=== PATIENT | male | born 1990 | race Two or more races ===

== ENCOUNTER 2016-11-22 00:34 | Emergency (ER) | payer OTHER ==
[2016-11-22] MEDS ORDERED: SULFAMETHOX/TMP 800/160 MG 1 TAB PO ONE (01:19)
--- NOTE | 2016-11-22 01:26 | EDPHY ---
H & P Stated Complaint: right thigh abcess Time Seen by Provider: 11/22/16 00:53 HPI/ROS: Chief complaint: Right thigh abscess History of present illness: This is a 26-year-old male who presents to the emergency department concerned he has developed a right thigh abscess. Patient reports he has had a history of recurrent abscesses in this region. He reports the onset of symptoms over the last few days. Reports pain and swelling to the inner aspect of the thigh. He believes needs to be drained. He denies other associated signs or symptoms including no no fevers, no difficulty ambulating. He is concerned he is having recurrent infections, he is wondering if he has maybe developed diabetes as he read about this online. - Personal History Tetanus Vaccine Date: < 10 years - Medical/Surgical History Hx Asthma: Yes Hx Chronic Respiratory Disease: No Hx Diabetes: No Hx Cardiac Disease: No Hx Renal Disease: No Hx Cirrhosis: No Hx Alcoholism: No Hx HIV/AIDS: No Hx Splenectomy or Spleen Trauma: No Other PMH: asthma. abcess recurring to lle - Social History Smoking Status: Current some day smoker - Physical Exam Exam: General Appearance: Alert, nontoxic. Eyes: Pupils equal and round no injection. Respiratory: Chest is nontender, lungs are clear to auscultation. Cardiac: Regular rhythm. Gastrointestinal: Abdomen is soft and nontender, no masses, bowel sounds normal. Musculoskeletal: Patient is ambulating without difficulty. Skin: There is a 3 cm area of fluctuance to the inner aspect of the right mid thigh. Mild surrounding erythema. No red streaking. Constitutional: Initial Vital Signs Temperature (C) 36.3 C 11/22/16 00:37 Heart Rate 123 H 11/22/16 00:37 Respiratory Rate 20 11/22/16 00:37 Blood Pressure 151/85 H 11/22/16 00:37 O2 Sat (%) 96 11/22/16 00:37 O2 Delivery Mode Room Air Allergies/Adverse Reactions: No Known Allergies Allergy (Verified 11/22/16 00:37) Home Medications: Medication Instructions Recorded Juani Allergy 01/24/15 Singulair 01/24/15 Montelukast Sodium [Singulair] 10 mg PO DAILY #30 tab 02/22/15 Albuterol Hfa Anes Only [Proair 2 puffs IH QID PRN #2 mdi 10/12/15 Hfa Icu (*)] Montelukast Sodium [Singulair] 10 mg PO DAILY@1800 #30 tab 10/12/15 Sulfamethox/Tmp 800/160 mg 1 tab PO BID #14 tab 11/22/16 [Bactrim Ds] Medical Decision Making Procedures: Procedure: Abscess drainage. The patient's abscess was located on the right thigh. I obtained verbal consent from the patient to drain the abscess who was informed about the possibility of bleeding and pain. The abscess was incised with a scalpel and a a moderate amount of purulent drainage was expressed. I irrigated the wound. The patient tolerated the procedure well. The procedure was performed by myself. ED Course/Re-evaluation: Patient seen under the supervision of my secondary supervising physician Dr. Patrick Castillo. Patient presents to the emergency department concerned he has developed another abscess on his thigh. He does appear to have an abscess and it has been incised and drained. There is some minimal surrounding erythema concerning for developing cellulitis. He is started on Bactrim. He is concerned about diabetes, blood sugars checked and within normal limits. A wound culture has been obtained. He will be discharged home on a full course of Bactrim. He is referred to a primary care doctor for further evaluation and care and follow-up on his wound culture. Home care is discussed. Return precautions are given. Patient voiced understanding and agreement with plan. Differential Diagnosis: Included but not limited to abscess, cellulitis, lymphangitis - Data Points Microbiology Results: MICROBIOLOGY 11/22/16 01:24 Leg - Swab Gram Stain - Final 11/22/16 01:24 Leg - Swab Wound Culture - Preliminary Medications Given: Discontinued Medications Sodium Chloride (Ns) 1,000 mls @ 0 mls/hr IV ONCE ONE PRN Reason: Wide Open Stop: 11/22/16 02:16 Last Admin: 11/22/16 02:15 Dose: 1,000 mls Trimethoprim/Sulfamethoxazole (Bactrim Ds) 1 ea PO EDNOW ONE PRN Reason: Protocol Stop: 11/22/16 01:20 Last Admin: 11/22/16 01:42 Dose: 1 ea Departure - Departure Disposition: Home, Routine, Self-Care Clinical Impression: Abscess Condition: Good Instructions: Abscess (ED) Additional Instructions: Follow-up with the primary care doctor for recheck Please let the primary care doctor know that a wound culture is pending Take antibiotics as prescribed until finished even feeling better If symptoms worsen or new symptoms develop return to the emergency department for recheck Referrals: NONE *PRIMARY CARE P,. [Primary Care Provider] - As per Instructions [facility],. [Clinic] - As per Instructions Ramez Bauman MD [Medical Doctor] - As per Instructions Prescriptions: Sulfamethox/Tmp 800/160 mg [Bactrim Ds] 1 tab PO BID #14 tab
[2016-11-22 01:44] VITALS: O2SAT 97
[2016-11-22] MEDS ORDERED: NS 1,000 ML IV ONE (02:15)
[2016-11-22 02:37] VITALS: BP 155/94; PULSE 102; RESP 18; TEMP 99.3
== END 2016-11-22 02:37 | disposition home or self-care (01) ==
PROC: 0J9L0ZZ Drainage of Right Upper Leg Subcutaneous Tissue and Fascia, Open Approach (ICD-10-PCS; principal; 2016-11-22)
DX: L02.415 Cutaneous abscess of right lower limb (principal); J45.909 Unspecified asthma, uncomplicated; F17.200 Nicotine dependence, unspecified, uncomplicated
CPT/HCPCS: 82947-QW

== ENCOUNTER 2017-04-25 23:24 | Emergency (ER) | payer OTHER ==
[2017-04-25 23:29] VITALS: RESP 16; O2SAT 98
--- NOTE | 2017-04-26 00:03 | EDPHY ---
H & P Stated Complaint: c/o heaviness in L chest radiating into L shoulder/L upper back, x 2 days Time Seen by Provider: 04/25/17 23:35 HPI/ROS: Chief Complaint: Chest discomfort HPI: 27-year-old male has been having upper chest discomfort described as a tightness in his central upper chest into the left upper chest and into his left shoulder blade. At worst is a 2/10. Is described as a heaviness. Has not had any cough but has some mild shortness of breath. Does have a history of asthma, but does not believe that this has been worse recently. He has been compliant with medications. No substernal chest pain. No lightheadedness. No dyspnea on exertion. There are no aggravating or alleviating factors. ROS: 10 point Review of Systems is negative except as noted in the HPI. PMH: Asthma Medications: Singulair, Juani Allergies: No known drug allergies Social History: Positive smoking, no alcohol, no recreational drug use Family History: Diabetes, hyperlipidemia, hypertension Physical Exam: Gen: Awake, Alert, No Distress HEENT: Nose: no rhinorrhea Eyes: PERRLA, EOMI Mouth: Moist mucosa Neck: Supple, no JVD Chest: nontender, mild diffuse expiratory wheeze, no focal rales or rhonchi Heart: S1, S2 normal, no murmur Abd: Soft, non-tender, no guarding Back: no CVA tenderness, no midline tenderness Ext: no edema, non-tender Skin: no rash Neuro: CN II-XII intact, Sensation grossly intact, Strength 5/5 in bilateral upper and lower extremities - Personal History Tetanus Vaccine Date: < 10 years - Medical/Surgical History Hx Asthma: Yes Hx Chronic Respiratory Disease: No Hx Diabetes: No Hx Cardiac Disease: No Hx Renal Disease: No Hx Cirrhosis: No Hx Alcoholism: No Hx HIV/AIDS: No Hx Splenectomy or Spleen Trauma: No Other PMH: asthma. abcess recurring to lle - Social History Smoking Status: Current some day smoker Constitutional: Initial Vital Signs Temperature (C) 36.6 C 04/25/17 23:26 Heart Rate 74 04/25/17 23:26 Respiratory Rate 16 04/25/17 23:26 Blood Pressure 142/82 H 04/25/17 23:26 O2 Sat (%) 98 04/25/17 23:26 O2 Delivery Mode Room Air Allergies/Adverse Reactions: No Known Allergies Allergy (Verified 04/25/17 23:29) Home Medications: Medication Instructions Recorded Juani Allergy 01/24/15 Singulair 01/24/15 Albuterol Hfa Anes Only [Proair 2 puffs IH QID PRN #2 mdi 10/12/15 Hfa Icu (*)] Medical Decision Making - Diagnostics EKG Interpretation: ECG time 12:05 a.m. sinus rhythm with a rate of 70, normal axis, normal intervals, no acute ST or T-wave changes. Impression: Normal ECG. ED Course/Re-evaluation: 27-year-old asthmatic male presenting with some chest tightness. He has an unremarkable ECG. Does have some mild diffuse expiratory wheezing but no hypoxemia or retractions. No evidence of acute cardiac process at this time. Will discharge with follow-up as an outpatient. Return for worsening. Departure - Departure Disposition: Home, Routine, Self-Care Clinical Impression: Atypical chest pain Condition: Good Instructions: Chest Pain (ED) Additional Instructions: Return to the emergency depart for worsening chest pain, worsening shortness of breath, lightheadedness, fainting, fevers, chills, or any other concerns. Follow up with primary care physician in 3-4 days for re-evaluation. Continue taking your usual asthma medications. Referrals: Paradise Malhotra MD [[facility] [place]] - As per Instructions
--- NOTE | 2017-04-26 00:07 | CPEKG ---
Heart Rate: 70 RR Interval: 857 P-R Interval: 144 QRSD Interval: 90 QT Interval: 380 QTC Interval: 410 P [place]: 31 QRS [place]: 55 T Wave [place]: 22 EKG Severity - BORDERLINE ECG - EKG Impression: SINUS RHYTHM EKG Impression: INFERIOR Q WAVES, PROBABLY NORMAL VARIATION Electronically Signed By: Patrick Monteiro 27-Apr-2017 05:31:51
[2017-04-26 00:28] VITALS: BP 124/79; PULSE 70; TEMP 98.1
== END 2017-04-26 00:28 | disposition home or self-care (01) ==
DX: R07.89 Other chest pain (principal); J45.909 Unspecified asthma, uncomplicated; F17.200 Nicotine dependence, unspecified, uncomplicated

== ENCOUNTER 2017-07-29 18:24 | Emergency (ER) | payer OTHER ==
[2017-07-29 18:29] VITALS: RESP 18; TEMP 98.2
--- NOTE | 2017-07-29 18:44 | CPEKG ---
Heart Rate: 72 RR Interval: 833 P-R Interval: 152 QRSD Interval: 88 QT Interval: 376 QTC Interval: 412 P [place]: 33 QRS [place]: 54 T Wave [place]: 15 EKG Severity - NORMAL ECG - EKG Impression: SINUS RHYTHM Electronically Signed By: Chen Martin 29-Jul-2017 23:06:02
[2017-07-29 20:23] VITALS: BP 126/78; PULSE 78; O2SAT 97
--- NOTE | 2017-07-29 21:08 | EDPHY ---
H & P Time Seen by Provider: 07/29/17 18:52 HPI/ROS: HPI Chest discomfort. 27-year-old male by private vehicle. He reports that about 6:30 p.m. he developed central and left-sided chest tightness. He reports he had some tingling in his right and left finger tips. He reports this lasted for about 30 minutes until he came to the emergency department. He states that this time he started to relax and his symptoms went away. He was seen in our emergency department for the same complaint on April 25 of this year. He had a normal EKG at that time and was discharged to home. He now denies any chest discomfort and the tingling in his hands has resolved. He has had no associated shortness of breath. He does have a history of asthma. He uses an inhaler as needed and is on Singulair daily. He is a smoker. No history of diabetes, hypertension, hyperlipidemia. No significant family history of coronary artery disease. ROS: Constitutional: No fever, no chills. No weakness. Eyes: No discharge. No changes in vision. ENT: No sore throat. No nasal congestion or rhinorrhea. Respiratory: No cough. No shortness of breath. Cardiac: As above, no palpitations. Gastrointestinal: No abdominal pain, no vomiting, no diarrhea. Genitourinary: No hematuria. No dysuria or increased frequency with urination. Musculoskeletal: No back pain. No neck pain. No myalgias or arthralgias. Skin: No rashes. Neurological: No headache. No focal weakness. As above. Past medical history: Asthma. As above. Social history: Smoker. Here by himself. No alcohol. Denies IV drug street drugs. Physical Exam: General Appearance: Alert, no distress. This patient is responding to questions appropriately and in full sentences. This patient appears well- hydrated and well-nourished. Eyes: Pupils equal and round no pallor or injection. No lid edema, erythema or injection. Respiratory: There are no retractions, lungs are clear to auscultation with good air movement bilaterally. No tachypnea. Cardiovascular: Regular rate and rhythm. No murmur. Chest wall is stable to AP and lateral palpation. Gastrointestinal: Abdomen is soft and nontender, no masses, bowel sounds normal. No focal tenderness at McBurney's point. No Thorne sign. Neurological: Motor sensory function is grossly intact. Cranial nerves are normal. Gait is normal. Skin: Warm and dry, no rashes. Musculoskeletal: Neck is supple and nontender. Extremities are symmetrical. All joints range without pain or impingement. Psychiatric: No agitation. No depression. Database: EKG: EKG time is 6:42 p.m.; EKG shows a narrow complex normal sinus rhythm with a ventricular rate of 72. The SD, QRS, QT intervals are within normal limits. There are no ST-T wave changes indicative of ischemic or injury pattern. No evidence of right heart strain. Interpreted by me. Imaging: Chest x-ray PA and lateral; the cardiac mediastinal silhouette is unremarkable. No evidence of infiltrate or pneumothorax. No acute cardiopulmonary disease process noted. Interpreted by me. Procedures: Emergency department course: Vital signs reviewed and are normal. Pulse oximetry is 99% on room air. The patient has been asymptomatic since being in the emergency department. His EKG demonstrates no evidence of acute coronary syndrome. His presentation is consistent with an anxiety type reaction. He is low risk for acute coronary syndrome. He feels comfortable going home and I feel he is safe for discharge. Follow-up and return to emergency department precautions have been discussed with him. All of his questions were answered. He was discharged in good condition. Differential Diagnosis: The differential diagnosis on this patient includes but is not limited to anxiety reaction, asthma exacerbation resolved. Acute coronary syndrome, pulmonary embolism, aortic dissection, myocarditis, pericarditis unlikely. This represents a partial list of diagnoses considered. These considerations are based on history, physical exam, past history, reassessment and diagnostic testing. Smoking Status: Current some day smoker Constitutional: Initial Vital Signs Temperature (C) 36.8 C 07/29/17 18:26 Heart Rate 74 07/29/17 18:26 Respiratory Rate 18 07/29/17 18:26 Blood Pressure 132/86 H 07/29/17 18:26 O2 Sat (%) 99 07/29/17 18:26 O2 Delivery Mode Room Air Allergies/Adverse Reactions: No Known Allergies Allergy (Verified 07/29/17 18:25) Home Medications: Medication Instructions Recorded Juani Allergy 01/24/15 Singulair 01/24/15 Albuterol Hfa Anes Only [Proair 2 puffs IH QID PRN #2 mdi 10/12/15 Hfa Icu (*)] Departure - Departure Disposition: Home, Routine, Self-Care Clinical Impression: Chest discomfort Condition: Good Instructions: Noncardiac Chest Pain (ED) Additional Instructions: Read and follow provided instructions. Follow-up with your primary care physician in 1-2 days for re-evaluation. Continue to take your medications as prescribed for asthma. Return to the emergency department immediately for return of chest discomfort, shortness of breath or other serious concerns. Referrals: NONE *PRIMARY CARE P,. [Primary Care Provider] - As per Instructions Rico Paul MD [Medical Doctor] - As per Instructions
== END 2017-07-29 21:29 | disposition home or self-care (01) ==
DX: R07.89 Other chest pain (principal); J45.909 Unspecified asthma, uncomplicated; F17.200 Nicotine dependence, unspecified, uncomplicated

== ENCOUNTER 2017-11-23 20:39 | Emergency (ER) | payer OTHER ==
[2017-11-23 20:44] VITALS: BP 139/82; PULSE 101; RESP 16; TEMP 98.2; O2SAT 99
--- NOTE | 2017-11-23 21:44 | EDPHY ---
H & P Smoking Status: Current every day smoker Time Seen by Provider: 11/23/17 21:30 HPI/ROS: CHIEF COMPLAINT: Wound evaluation right thigh HISTORY OF PRESENT ILLNESS: 27-year-old immunocompetent male, no history of diabetes, history of recurrent abscesses in the ER for wound check. He has been complaining of 4 days of tender area on his right medial thigh. His payroll assistant in [facility] [place] called in a prescription for antibiotic which patient has been taking as prescribed. The name of this antibiotic is unknown the patient notes that has worked in the past. He is in the ER for evaluation this wound. Has not been draining. No increase in pain. No fever or chills. No extension to the proximal thigh or perineum. PHYSICAL EXAM (Prior to examination, patient consented to physical exam, hands were washed and my usual and customary physical exam procedures followed) 1) GENERAL: Well-developed, well-nourished, alert and oriented. Appears to be in no acute distress. 2) HEAD: Normocephalic 3) HEENT: sclera anicteric 4) LUNGS: Breathing comfortably. 5) SKIN: The patient's right medial thigh he has a tender, indurated, nondraining, nonfluctuant so 3 cm in diameter lesion with no lymphangitic streaking. No crepitus. No extension to the perineum or scrotum. No evidence of Maryanne's gangrene. (Chetna Baez) Constitutional: Initial Vital Signs Temperature (C) 36.8 C 11/23/17 20:41 Heart Rate 101 H 11/23/17 20:41 Respiratory Rate 16 11/23/17 20:41 Blood Pressure 139/82 H 11/23/17 20:41 O2 Sat (%) 99 11/23/17 20:41 O2 Delivery Mode Room Air Allergies/Adverse Reactions: No Known Allergies Allergy (Verified 11/23/17 20:44) Home Medications: Medication Instructions Recorded Juani Allergy 01/24/15 Singulair 01/24/15 Albuterol Hfa Anes Only [Proair 2 puffs IH QID PRN #2 mdi 10/12/15 Hfa Icu (*)] MDM/Departure - MDM ED Course/Re-evaluation: Doubt Maryanne's gangrene, doubt necrotizing fasciitis. I do not think the patient has a current cutaneous abscess and I do not think that incision and drainage chart indicated at this time however I have recommended continue warm compresses informed him that this may progress to an abscess which may require incision and drainage. He does not know the name of the medication he was prescribed does note that it has helped him in the past and notes that he feels he is improving. Recommend he continue this medication regimen. Care of patient under supervision of secondary supervising physician Dr Sousa . ( [facility] The patient was evaluated and managed by the Physician Cleaning Team Member. My co- signature indicates that I have reviewed this chart and I agree with the findings and plan of care as documented. I am the secondary supervising physician. (Ivanna Sousa) - Depart Disposition: Home, Routine, Self-Care Clinical Impression: Carbuncle and furuncle Condition: Good Instructions: Furunculosis and Carbunculosis (ED) Additional Instructions: Return to the ER if you develop redness, swelling, discharge, warmth to the wound, red streaks going up your leg, or any other symptoms that concern you. Keep warm compresses applied to the area 3 times per day Stand Alone Forms: School Excuse Referrals: [facility] [Clinic] - 1-2 days without fail
== END 2017-11-23 21:56 | disposition home or self-care (01) ==
DX: L02.435 Carbuncle of right lower limb (principal); F17.200 Nicotine dependence, unspecified, uncomplicated

== ENCOUNTER 2017-12-24 20:44 | Emergency (ER) | payer OTHER ==
[2017-12-24 21:00] VITALS: BP 136/82
[2017-12-24] MEDS ORDERED: ONDANSETRON DISINTEGRATING 4 MG TAB PO ONE (21:11)
--- NOTE | 2017-12-24 21:14 | EDPHY ---
H & P Time Seen by Provider: 12/24/17 20:45 HPI/ROS: CHIEF COMPLAINT: Diarrhea HISTORY OF PRESENT ILLNESS: Patient states he ate a turkey sandwich at a sub shop on the [place] in [place] last night. He felt fine. This morning when he woke up he had a"grumbly"stomach with 2 episodes of diarrhea during the day. Some nausea but no vomiting. Denies blood in stool. No recent travel. No recent antibiotics. Denies abdominal pain. No fever. No dysuria. No rash. REVIEW OF SYSTEMS: Negative except per HPI. General Appearance: Alert, no distress. Eyes: Pupils equal and round no icterus Respiratory: No respiratory distress Neurological: Awake, alert, no focal deficits. Skin: Warm and dry, no rashes. Musculoskeletal: Neck is supple nontender. Extremities are symmetrical, full range of motion, no edema. Psychiatric: Patient is oriented X 3, there is no agitation. 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 Smoker. Smoking Status: Current every day smoker Constitutional: Initial Vital Signs Temperature (C) 36.7 C 12/24/17 20:57 Heart Rate 77 12/24/17 20:57 Respiratory Rate 18 12/24/17 20:57 Blood Pressure 136/82 H 12/24/17 20:57 O2 Sat (%) 98 12/24/17 20:57 O2 Delivery Mode Room Air Allergies/Adverse Reactions: No Known Allergies Allergy (Verified 12/24/17 20:56) Home Medications: Medication Instructions Recorded Juani Allergy 01/24/15 Singulair 01/24/15 Albuterol Hfa Anes Only [Proair 2 puffs IH QID PRN #2 mdi 10/12/15 Hfa Icu (*)] Medical Decision Making Differential Diagnosis: Differential diagnosis includes but is not limited to infectious diarrhea, gastroenteritis, gastrointestinal bleeding C difficile colitis. After evaluation patient with mild gastrointestinal symptoms and only 2 episodes of diarrhea. Recommended [id number] Pepto-Bismol, fluids and good hand hygiene. Low suspicion for other acute abdominal etiology. Stable for discharge. - Data Points Medications Given: Discontinued Medications Ondansetron HCl (Zofran Odt) 4 mg PO EDNOW ONE Stop: 12/24/17 21:12 Last Admin: 12/24/17 21:15 Dose: 4 mg Departure - Departure Clinical Impression: Diarrhea Qualifiers: Diarrhea type: unspecified type Qualified Code(s): R19.7 - Diarrhea, unspecified Condition: Good Instructions: Acute Diarrhea (ED) Additional Instructions: Try Pepto-Bismol [id number] as discussed. Also stay well hydrated with something like Gatorade. Return to the emergency department or seek re- evaluation if he develops high fever, significant abdominal pain, blood in her stool or other concerning new symptoms. Referrals: NONE *PRIMARY CARE P,. [Primary Care Provider] - As per Instructions Stand Alone Forms: School Excuse
== END 2017-12-24 21:22 | disposition home or self-care (01) ==
LOC: CED 20:44
DX: R19.7 Diarrhea, unspecified (principal); J45.909 Unspecified asthma, uncomplicated; F17.200 Nicotine dependence, unspecified, uncomplicated

== ENCOUNTER 2018-01-01 20:23 | Emergency (ER) | payer OTHER ==
--- NOTE | 2018-01-01 20:36 | EDPHY ---
H & P Time Seen by Provider: 01/01/18 20:35 HPI/ROS: CHIEF COMPLAINT: Medication refill HISTORY OF PRESENT ILLNESS: This is a 27-year-old male with a history of reactive airway disease for which he takes Singulair and uses an albuterol MDI as needed. Today he felt short of breath, as if he were wheezing, and used his albuterol. He ran out of his Singulair a couple of days ago and requests a refill. He has been coughing today, nonproductive. He attributes this to the cold air. He is not experiencing chest pain. He has not had fever. REVIEW OF SYSTEMS: A ten point review of systems was performed and is negative with the exception of the items mentioned in the HPI. Past medical history: Reactive airway disease Social history: He is from [facility]. He is a student at the [employer]. He smokes cigarettes. General Appearance: Alert. Vital signs reviewed. Blood pressure 129/100. Eyes: Pupils equal and round, no conjunctival injection, no discharge. Anicteric. ENT, Mouth: Mucous membranes are moist, no oropharyngeal erythema or edema. Neck: No lymphadenopathy, supple. Respiratory: Lungs are clear to auscultation; no wheezes, rales, or rhonchi. Cardiovascular: Regular rate and rhythm; no murmur, rub, or gallop. Gastrointestinal: Abdomen is soft and nontender. Skin: Warm and dry, no rashes on exposed skin, normal color. Extremities: No lower extremity edema, no calf tenderness or swelling. Neurological: Alert and oriented. Moving all four extremities easily and equally. Psychiatric: Normal affect. - Personal History Tetanus Vaccine Date: < 10 years - Medical/Surgical History Hx Asthma: Yes Hx Chronic Respiratory Disease: No Hx Diabetes: No Hx Cardiac Disease: No Hx Renal Disease: No Hx Cirrhosis: No Hx Alcoholism: No Hx HIV/AIDS: No Hx Splenectomy or Spleen Trauma: No Other PMH: asthma. abcess recurring to lle, HS - Social History Smoking Status: Current every day smoker Constitutional: Initial Vital Signs Temperature (C) 36.7 C 01/01/18 20:30 Heart Rate 86 01/01/18 20:30 Respiratory Rate 16 01/01/18 20:30 Blood Pressure 129/100 H 01/01/18 20:30 O2 Sat (%) 96 01/01/18 20:30 O2 Delivery Mode Room Air Allergies/Adverse Reactions: No Known Allergies Allergy (Verified 01/01/18 20:35) Home Medications: Medication Instructions Recorded Juani Allergy 01/24/15 Singulair 01/24/15 Albuterol Hfa Anes Only [Proair 2 puffs IH QID PRN #2 mdi 10/12/15 Hfa Icu (*)] Albuterol [Proventil Inhaler HFA 1 - 2 puffs IH Q4 #1 mdi 01/01/18 (*)] Montelukast Sodium [Singulair 10 10 mg PO DAILY@1800 #30 tab 01/01/18 mg (*)] Medical Decision Making ED Course/Re-evaluation: 27-year-old with reactive airway disease who requests a refill of his singular. He is not wheezing. He is not tachypneic or hypoxic. I do not think that he is experiencing an asthma exacerbation and not recommend prednisone at this point in time. I am willing to refill his Singulair prescription. He also requests a school excuse for today. I am referring him for primary care. We also discussed smoking cessation. Differential Diagnosis: Shortness of breath including but not limited to pulmonary infectious process, COPD, asthma, pulmonary embolus and congestive heart failure. Departure - Departure Disposition: Home, Routine, Self-Care Clinical Impression: Medication refill Reactive airway disease Qualifiers: Asthma severity: mild Asthma persistence: intermittent Asthma complication type : uncomplicated Qualified Code(s): J45.20 - Mild intermittent asthma, uncomplicated Condition: Good Instructions: How to Stop Smoking (ED), Reactive Airways Disease (ED) Additional Instructions: Use her albuterol inhaler 4 times daily. Use the singular is prescribed. I am referring you to a primary care provider. I recommend that you quit smoking. Referrals: Felicia Gallardo MD [[facility] [place] - As per Instructions Stand Alone Forms: School Excuse Prescriptions: Albuterol [Proventil Inhaler HFA (*)] 1 - 2 puffs IH Q4 #1 mdi Montelukast Sodium [Singulair 10 mg (*)] 10 mg PO DAILY@1800 #30 tab
[2018-01-01 20:38] VITALS: BP 129/100
== END 2018-01-01 20:58 | disposition home or self-care (01) ==
LOC: CED 20:23
DX: J45.20 Mild intermittent asthma, uncomplicated (principal); F17.200 Nicotine dependence, unspecified, uncomplicated; Z76.0 Encounter for issue of repeat prescription